=== PATIENT | female | born 1980 | race African-American/Black ===

== ENCOUNTER 2018-01-03 11:37 | Emergency (ER) | payer SELFPAY, OTHER | END 2018-01-03 12:03 | disposition home or self-care (01) | LOC: ER 12:03 | DX: J32.0 Chronic maxillary sinusitis (principal); H61.21 Impacted cerumen, right ear; F12.10 Cannabis abuse, uncomplicated | CPT/HCPCS: 99283 ==

== ENCOUNTER 2020-07-04 15:14 | Emergency (ER) | payer SELFPAY ==
[~2020-07-04] VITALS: Ht 149.9 cm; Wt 54.0 kg
[~2020-07-04 15:14] MED LIST: AMOX1TAB61 PO; CARB-117 OT
[2020-07-04] MEDS ORDERED: CETIRIZINE HCL 10 MG TABLET. PO ONE (16:30)
--- NOTE | 2020-07-04 16:59 | PHYS DOC ---
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 She states she is had to months of intermittent headache, dizziness, nasal congestion, dry cough, itchy eyes, runny nose. States she has been taking Mucinex for the whole 2 months and is not helping. She denies past medical history or taking any medications daily. Patient denies shortness of breath, LOC, dizziness at this time, chest pain, abdominal pain, nausea, vomiting, diarrhea, numbness or tingling. Review of Systems: Review of Systems: Constitutional: Denies fever or chills. [] Eyes: Denies change in visual acuity. [] HENT: + nasal congestion or denies sore throat. [] Respiratory: +cough or denies shortness of breath. [] Cardiovascular: Denies chest pain or edema. [] GI: Denies abdominal pain, nausea, vomiting, bloody stools or diarrhea. [] : Denies dysuria. [] Musculoskeletal: Denies back pain or joint pain. [] Integument: Denies rash. [] Neurologic: + headache, denies focal weakness or sensory changes. [] Endocrine: Denies polyuria or polydipsia. [] Lymphatic: Denies swollen glands. [] Psychiatric: Denies depression or anxiety. [] Heart Score: Risk Factors: Risk Factors: DM, Current or recent (<one month) smoker, HTN, HLP, family history of CAD, obesity. Risk Scores: Score 0 - 3: 2.5% MACE over next 6 weeks - Discharge Home Score 4 - 6: 20.3% MACE over next 6 weeks - Admit for Clinical Observation Score 7 - 10: 72.7% MACE over next 6 weeks - Early Invasive Strategies Current Medications: Current Medications Medications (Trade) Dose Ordered Sig/Darrell Start Time Stop Time Status Last Admin Dose Admin Cetirizine HCl (ZyrTEC) 10 mg 1X ONCE 07/04/20 16:30 07/04/20 16:31 DC Allergies: Allergies: Allergies Coded Allergies Type Severity Reaction Last Updated Verified No Known Drug Allergies 07/05/14 No Physical Exam: PE: Constitutional: Well developed, well nourished, no acute distress, non-toxic appearance. [] HENT: Normocephalic, atraumatic, bilateral external ears normal, oropharynx moist, no oral exudates, nose normal. Sinus tenderness. [] Eyes: PERRLA, EOMI, conjunctiva normal, no discharge. Bilateral puffiness around eyes. [] Neck: Normal range of motion, no tenderness, supple, no stridor. [] Cardiovascular:Heart rate regular rhythm, no murmur [] Lungs & Thorax: Bilateral breath sounds clear to auscultation [] Abdomen: Bowel sounds normal, soft, no tenderness, no masses, no pulsatile masses. [] Skin: Warm, dry, no erythema, no rash. [] Back: No tenderness, no CVA tenderness. [] Extremities: No tenderness, no cyanosis, no clubbing, ROM intact, no edema. [] Neurologic: Alert and oriented X 3, normal motor function, normal sensory function, no focal deficits noted. [] Psychologic: Affect normal, judgement normal, mood normal. [] Current Patient Data: Vital Signs: Vital Signs Date Time Temp Pulse Resp B/P (MAP) Pulse Ox O2 Delivery O2 Flow Rate FiO2 07/04/20 15:39 98.9 87 20 109/84 (92) 99 98.9 EKG: EKG: [] Radiology/Procedures: Radiology/Procedures: [] Impression: [facility] [address] [place] [address] IMAGING REPORT Signed PATIENT: BLAS FIGUEROA ACCOUNT: [id number] : 1980 LOCATION: ER AGE: 40 SEX: F EXAM STATUS: REG ER ORD. PHYSICIAN: APRIL MULTANI APRN REASON: cough PROCEDURE: PORTABLE CHEST 1V EXAM: CHEST 1 VIEW History: Cough COMPARISON: 07/15/2013 TECHNIQUE: Single portable radiograph of the chest FINDINGS: The cardiac silhouette is unremarkable. Mild prominent bilateral interstitial lung markings. The costophrenic sulci are clear and well demarcated. IMPRESSION: Mild prominent bilateral interstitial lung markings could be mild interstitial infiltrates or atypical or viral infection.. Electronically signed by: Michael Gambino MD (07/04/2020 5:16 PM) [id number] DICTATED and SIGNED BY: MICHAEL GAMBINO MD DATE: 07/04/20 1716 Course & Med Decision Making: Course & Med Decision Making Pertinent Labs and Imaging studies reviewed. (See chart for details) COVID-19 CRITERIA: The patient was evaluated during the global COVID-19 pandemic, and that diagnosis was suspected/considered upon their initial pres entation. Their evaluation, treatment and testing was consistent with current guidelines for patients who present with complaints or symptoms that may be related to COVID-19. See HPI. Alert and oriented x4. Speaks in full clear sentences. Vital signs within normal limits. Skin pink warm and dry. Patient's eyes bilaterally are puffy patient states they are itchy. Patient is congested and has sinus pressure and tenderness with palpation. Lungs are clear all station all lobes. No extremity edema. She has given Zyrtec in the ED. Vital signs are within normal limits. X-ray shows possible pneumonia. She will be treated with azithromycin and dexamethasone. [] Dragon Disclaimer: Dragon Disclaimer: This electronic medical record was generated, in whole or in part, using a voice recognition dictation system. COVID-19 Patient Risks: Age 65 or older: No Sign of co-morbidity: Yes Exp to person + for COVID: No Exp to PUI: No Travel from affected area: No Lower respiratory symptoms: Yes Fever: No Other: No PPE Use: Full PPE with N95 mask or PAPR: Yes Departure Departure Impression: Primary Impression: Person under investigation for COVID-19 Additional Impressions: Pneumonia Qualified Codes: J18.9 - Pneumonia, unspecified organism Sinusitis Qualified Codes: J01.90 - Acute sinusitis, unspecified Disposition: 01 HOME, SELF-CARE Condition: STABLE Referrals: NO PCP (PCP) Patient Instructions: Pneumonia, Adult, Sinusitis Additional Instructions: Follow-up with primary care physician. I would quarantine yourself since you were checked for COVID until you have your results. Take medication as prescribed and with food. You have been tested for or diagnosed with COVID-19. It is an infection caused by a new type of coronavirus. COVID-19 will cause cold-like or mild flu symptoms in most. It can cause more severe symptoms like problems breathing in some. There is no treatment for COVID-19. The body will clear the infection over time. Self-care will help to ease discomfort. Steps to Take: Self-Care Rest as needed. Healthy habits may help you feel better. Steps include: Choose healthy foods including fruits and vegetables. Drink water throughout the day. Get plenty of sleep each night. If you smoke, try to quit. It may ease breathing. Avoid alcohol. Keep Others Healthy The virus can spread to others. Droplets are released every time you sneeze or cough. The droplets can get into the mouth, nose, or eyes of people near you and lead to infection. To lower the chances of spreading COVID-19 to others: Stay at home until your doctor has said it is safe to leave. If you tested positive this will mean staying isolated until both of the following are true: At least 7 days have passed since the start of illness. You are free of fever for at least 72 hours without the use of medicine. During this time: - Avoid public areas, events, or transportation. Do not return to work or [employer] until your doctor has said it is safe to do so. - Call ahead if you need to go to a medical center. Let them know you may have COVID-19. It will help them guide you where to go. They may also ask you to wear a facemask when you come to the office. - If you call for emergency medical services, let them know you may have COVID- 19. While at home: - Try to avoid close contact with others. Stay about 6 feet away. - If possible, spend most of your time in a separate room from others. - Use a face mask if you will be in close contact with others such as sharing a room or vehicle. - Have someone wipe down common surfaces in the home. Use household superintendent production every day on areas like doorknobs, counters, or sinks. - Cough or sneeze into a tissue. Throw the tissue away right after use. If a tissue is not available, cough or sneeze into your elbow. - Wash your hands often. Wash them after sneezing or coughing. Use soap and water and wash for at least 20 seconds. Alcohol based hand machine fur cleaner can be used if soap and water is not available. - Do not prepare food for others. Avoid sharing personal items like forks, spoons, or toothbrushes. - Avoid close contact with pets while you are sick. There is no evidence of the virus passing to pets. This is a safety step until more is known about this virus. Isolation can be frustrating. Social interaction can help. Keep in touch with friends and family through phone and tech options. You can still interact with others in your home, just keep a safe distance of about 6 feet. Follow-up: Your doctors office will check in with you to see if there are any changes in your health. You may be asked to keep track of symptoms to share with them. They will also let you know when you are clear to be in public again. Problems to Look Out For: Contact your doctor if your recovery is not going as you expect. Get emergency care if you have problems such as: - Trouble breathing - Nonstop chest pain or pressure - Changes in awareness, confusion, or problems waking - Lips or face have bluish color - Worsening of symptoms If you think you have an emergency, call for emergency medical services right away. As taken from [facility] Benzonatate (TESSALON PERLE) 100 Mg Capsule 1 CAP PO TID, #30 CAP Prov: APRIL MULTANI APRN 07/04/20 Albuterol Sulfate (Proair Hfa) 8.5 Gm Hfa.aer.ad 1 PUFF INH PRN Q6HRS PRN for SHORTNESS OF BREATH, #1 INHALER Prov: APRIL MULTANI APRN 07/04/20 Methylprednisolone (MEDROL) 4 Mg Tab.ds.pk 1 PKG PO UD, #1 PKG Prov: APRIL MULTANI APRN 07/04/20 Azithromycin (AZITHROMYCIN TABLET) 250 Mg Tablet 1 PKG PO UD for 5 Days, #6 TAB 0 Refills 2 the first day followed by 1 for days 2-5 Prov: APRIL MULTANI APRN 07/04/20 Justicifation of Admission Dx: Justifications for Admission: Justification of Admission Dx: N/A APRIL MULTANI APRN Jul 04, 2020 16:59
[2020-07-04 17:00] VITALS: BP 110/78
--- NOTE | 2020-07-04 17:19 | RAD ---
EXAM: CHEST 1 VIEW History: Cough COMPARISON: 07/15/2013 TECHNIQUE: Single portable radiograph of the chest FINDINGS: The cardiac silhouette is unremarkable. Mild prominent bilateral interstitial lung markings. The costophrenic sulci are clear and well demarcated. IMPRESSION: Mild prominent bilateral interstitial lung markings could be mild interstitial infiltrates or atypical or viral infection.. Electronically signed by: Michael Gambino MD (07/04/2020 5:16 PM) [id number]
[2020-07-04] MEDS ORDERED: METH4TAB2 PO (17:41)
[2020-07-04] MEDS ORDERED: BENZ100C PO (17:41)
[2020-07-04] MEDS ORDERED: ALBU2.5V8 INH (17:41)
[2020-07-04] MEDS ORDERED: AZIT250T6 PO (17:41)
--- NOTE | 2020-07-06 10:26 | NUR ---
IP: Informed pt of negative COVID results. Pt verbalized understanding.
== END 2020-07-04 18:05 | disposition home or self-care (01) ==
LOC: ER 15:14
DX: J18.9 Pneumonia, unspecified organism (principal); Z20.828 Contact with and (suspected) exposure to other viral communicable diseases; J01.90 Acute sinusitis, unspecified; R42 Dizziness and giddiness; R05 Cough; R51 Headache; F12.90 Cannabis use, unspecified, uncomplicated; Z98.890 Other specified postprocedural states; Z87.891 Personal history of nicotine dependence
CPT/HCPCS: 71045; 99284; U0003

== ENCOUNTER 2021-04-05 16:42 | Emergency (ER) | payer SELFPAY ==
[~2021-04-05] VITALS: Ht 144.8 cm; Wt 44.3 kg
[~2021-04-05 16:42] MED LIST changes: +ALBU2.5V8 INH; +AZIT250T6 PO; +BENZ100C PO; +METH4TAB2 PO
--- NOTE | 2021-04-05 17:48 | PHYS DOC ---
Past Medical History Past Medical History: No Pertinent History Past Surgical History: Smoking Status: Former Smoker Alcohol Use: Occasionally Drug Use: Marijuana General Adult EDM: Chief Complaint: COUGH HPI: HPI: Patient is a 40 year old female current smoker who presents to the ED today complaining of cough for 1 week. Patient states she believes she has pneumonia. She states she had pneumonia 2 months ago and was treated. Patient denies any fever. Denies any shortness of breath Review of Systems: Review of Systems: Constitutional: Denies fever or chills. [] Eyes: Denies change in visual acuity. [] HENT: Denies nasal congestion or sore throat. [] Respiratory: Reports cough, denies shortness of breath. [] Cardiovascular: Denies chest pain or edema. [] GI: Denies abdominal pain, nausea, vomiting, bloody stools or diarrhea. [] : Denies dysuria. [] Musculoskeletal: Denies back pain or joint pain. [] Integument: Denies rash. [] Neurologic: Denies headache, focal weakness or sensory changes. [] Psychiatric: Denies depression or anxiety. [] Heart Score: C/O Chest Pain: N/A Risk Factors: Risk Factors: DM, Current or recent (<one month) smoker, HTN, HLP, family history of CAD, obesity. Risk Scores: Score 0 - 3: 2.5% MACE over next 6 weeks - Discharge Home Score 4 - 6: 20.3% MACE over next 6 weeks - Admit for Clinical Observation Score 7 - 10: 72.7% MACE over next 6 weeks - Early Invasive Strategies Allergies: Allergies: Allergies Coded Allergies Type Severity Reaction Last Updated Verified No Known Drug Allergies 07/05/14 No Physical Exam: PE: Constitutional: Thin appearing patient, no acute distress, non-toxic appearance. [] HENT: Normocephalic, atraumatic, bilateral external ears normal, oropharynx moist, no oral exudates, nose normal. [] Eyes: PERRLA, EOMI, conjunctiva normal, no discharge. [] Neck: Normal range of motion, no tenderness, supple, no stridor. [] Cardiovascular:Heart rate regular rhythm, no murmur [] Lungs & Thorax: Bilateral breath sounds clear to auscultation [] Abdomen: Bowel sounds normal, soft, no tenderness, no masses, no pulsatile masses. [] Skin: Warm, dry, no erythema, no rash. [] Back: No tenderness, no CVA tenderness. [] Extremities: No tenderness, no cyanosis, no clubbing, ROM intact, no edema. [] Neurologic: Alert and oriented X 3, normal motor function, normal sensory function, no focal deficits noted. [] Psychologic: Affect normal, judgement normal, mood normal. [] Current Patient Data: Vital Signs: Vital Signs Date Time Temp Pulse Resp B/P (MAP) Pulse Ox O2 Delivery O2 Flow Rate FiO2 04/05/21 17:39 98.8 68 22 144/85 (104) 96 Room Air 98.8 EKG: EKG: [] Radiology/Procedures: Radiology/Procedures: []PROCEDURE: CHEST PA & LATERAL EXAM: CHEST 2 VIEWS. HISTORY: Cough. COMPARISON: 07/04/2020. FINDINGS: Frontal and lateral views of the chest are obtained. There are mild perihilar interstitial opacities. There is no pneumothorax or pleural effusion. The heart is not enlarged. IMPRESSION: 1. Mild perihilar interstitial opacities. Correlate for atypical pneumonia. Electronically signed by: Seamus Monahan MD (04/05/2021 5:58 PM) [facility] DICTATED and SIGNED BY: KEILY MONAHAN MD DATE: 04/05/21 [id number] Course & Med Decision Making: Course & Med Decision Making Pertinent Labs and Imaging studies reviewed. (See chart for details) This is a 40-year-old female patient presented to the ED today with cough, symptoms began a week ago. Mild perihilar interstitial opacities. Correlate for atypical pneumonia. Patient was discharged on Augmentin. Encouraged to consider smoking cessation. Dragon Disclaimer: Dragon Disclaimer: This electronic medical record was generated, in whole or in part, using a voice recognition dictation system. Departure Departure Impression: Primary Impression: Pneumonia Qualified Codes: J18.9 - Pneumonia, unspecified organism Additional Impression: Smoking addiction Disposition: HOME / SELF CARE / HOMELESS Condition: STABLE Referrals: CASSI MCKEON JR, MD (PCP) follow up next week Patient Instructions: Pneumonia, Adult, Smoking Cessation Additional Instructions: You were evaluated in the emergency room and noted to have atypical pneumonia. Please take the prescribed antibiotics and the rest of the medications until completed. Consider smoking cessation. Scripts Nicotine (NICODERM CQ 21mg) 1 Each Patch.td24 1 PATCH TP DAILY, #28 PATCH 1 Refill Prov: JOSE CRUZ LEMUS APRN 04/05/21 Albuterol Sulfate (Proair Hfa) 8.5 Gm Hfa.aer.ad 2 PUFF IH PRN Q4-6HRS PRN for wheezing for 21 Days, #1 INHALER 0 Refills Prov: JOSE CRUZ LEMUS APRN 04/05/21 Benzonatate (TESSALON PERLE) 100 Mg Capsule 1 CAP PO TID, #30 CAP Prov: JOSE CRUZ LEMUS APRN 04/05/21 Prednisone (PREDNISONE) 50 Mg Tablet 1 TAB PO DAILY, #5 TAB Prov: JOSE CRUZ LEMUS APRN 04/05/21 Amoxicillin/Potassium Clav (AUGMENTIN 875-125 TABLET) 1 Each Tablet 1 TAB PO BID for 7 Days, #14 TAB 0 Refills Prov: JOSE CRUZ LEMUS APRN 04/05/21 JOSE CRUZ LEMUS APRN Apr 05, 2021 17:47
--- NOTE | 2021-04-05 18:00 | RAD ---
EXAM: CHEST 2 VIEWS. HISTORY: Cough. COMPARISON: 07/04/2020. FINDINGS: Frontal and lateral views of the chest are obtained. There are mild perihilar interstitial opacities. There is no pneumothorax or pleural effusion. The he art is not enlarged. IMPRESSION: 1. Mild perihilar interstitial opacities. Correlate for atypical pneumonia. Electronically signed by: Seamus Monahan MD (04/05/2021 5:58 PM) [facility]
[2021-04-05] MEDS ORDERED: BENZ100C PO (18:16)
[2021-04-05] MEDS ORDERED: NICO1PAT21 TP (18:16)
[2021-04-05] MEDS ORDERED: PRED50TA PO (18:16)
[2021-04-05] MEDS ORDERED: AMOX1TAB61 PO (18:16)
[2021-04-05] MEDS ORDERED: ALBU2.5V8 IH (18:16)
[2021-04-05 18:24] VITALS: BP 129/78
== END 2021-04-05 18:24 | disposition home or self-care (01) ==
LOC: ER 16:42
DX: J18.9 Pneumonia, unspecified organism (principal); F17.200 Nicotine dependence, unspecified, uncomplicated
CPT/HCPCS: 71046; 99283